=== PATIENT | male | born 1965 | race Caucasian/White ===

== ENCOUNTER 2021-09-19 23:37 | Emergency (ER) | payer BC ==
[~2021-09-19] VITALS: Ht 167.6 cm; Wt 79.0 kg
[2021-09-20 00:48] LABS: BASOPHILS % 0.8 % (0.0-2.0); HEMATOCRIT. 35.4 % (42.0-52.0); HEMOGLOBIN. 11.8 g/dL (14.0-18.0); MEAN CORPUSCULAR HEMOGLOBIN 30.7 pg (28.0-32.0); MEAN CORPUSCULAR VOLUME 92.3 fL (80.0-94.0); MONOCYTES % 5.8 % (2.0-8.0); NEUTROPHILS % 85.4 % (40.0-76.0); PLATELET 323 x1000/uL (130-400); RED BLOOD CELL COUNT 3.84 mill/uL (4.7-6.1)
[2021-09-20 00:50] LABS: CHLORIDE 95 mEq/L (98-107)
[2021-09-20] MEDS ORDERED: PIPERACILLIN/TAZOBACTAM 3.375GM/50ML PREMIX IV ONE (04:00)
[2021-09-20] MEDS ORDERED: VANCOMYCIN 1G PREMIX 200 ML IV SCH (04:00)
[2021-09-20] MEDS ORDERED: PIPERACILLIN/TAZ 3.375G PREMIX 50 ML IV NR (04:00)
[2021-09-20] MEDS ORDERED: ACETAMINOPHEN 500MG TABLET PO ONE (04:00)
[2021-09-20 10:13] VITALS: BP 115/72
== END 2021-09-20 10:15 | disposition short-term general hospital (02) ==
LOC: ER 23:37
DX: A41.9 Sepsis, unspecified organism (principal); R65.20 Severe sepsis without septic shock; L03.116 Cellulitis of left lower limb; Z20.822 Contact with and (suspected) exposure to COVID-19
CPT/HCPCS: 36415; 73630; 80053; 83605; 84145; 85025; 87040; 87426; 99291; J2543; J3370